=== PATIENT | female | born 1965 | race American Indian/Alaskan Native ===

== ENCOUNTER 2020-05-12 11:14 | Outpatient (CLI) | payer OTHER ==
--- NOTE | 2020-05-12 12:04 | XRay Report ---
LUMBAR SPINE 3 VIEWS INDICATION: BACK PAIN COMPARISON: None. FINDINGS: There is chronic compression deformity along the superior endplate of L1 with approximately 60% heigh t loss anteriorly. Lumbar vertebral body heights otherwise maintained. Posterior fusion rods are noted in the lower thoracic and lumbar spine. There is mild scoliosis. No s ignificant listhesis. Lower thoracic and upper lumbar discogenic degenerative change is noted. SI joints are within normal limits. CONCLUSION: 1. No acute findings. 2. Degenerative changes, as above. Signer Name: Devon Mart MD Signed: 05/12/2020 12:00 PM Workstation Name: [id number]
== END 2020-05-12 11:15 | disposition home or self-care (01) ==
LOC: XRAY 11:14
PROVIDERS: ATTEND Internal Medicine
DX: M47.815 Spondylosis without myelopathy or radiculopathy, thoracolumbar region (principal); M41.85 Other forms of scoliosis, thoracolumbar region
CPT/HCPCS: 72100